=== PATIENT | female | born 1975 | race Caucasian/White ===

== ENCOUNTER 2016-09-18 17:31 | Emergency (ER) | payer BC ==
[2016-09-18 18:13] VITALS: RESP 17; TEMP 96.4
--- NOTE | 2016-09-18 20:18 | PDOC ---
Ear Complaints HPI - General Chief Complaint: General Medical Stated Complaint: "I BLEW MY NOSE, GOT DIZZY, AND FELL DOWN" Date Seen by Provider: 09/18/16 Time Seen by Provider: 17:50 Source: POSITIVE: Patient Exam Limitations: POSITIVE: No limitations Nurse's Notes Reviewed & Considered: Yes - History of Present Illness Initial Comments: The patient is a 40-year-old female. She states that for the past week or so she's had URI symptoms with prominent nasal congestion and pain over her maxillary and ethmoid sinuses. She's also had discomfort to her ears. Mild cough. She states that this afternoon she blew her nose forcefully and experienced pain in both ears and states she got dizzy. No known fevers or chills. No headache. Minimally productive cough. No chest pain. No GI or symptoms. She's had a hysterectomy. Location: Both Ears Timing: REPORTS: Abrupt (Ear discomfort for about a week; abruptly worse after she blew her nose forcefully) Severity: Moderate Quality: REPORTS: "Pain" Context: REPORTS: Injury (Possible barotrauma as above) Modifying Factors: REPORTS: None Associated Symptoms: REPORTS: Dull Earache, Hearing Loss (Subjectively for the past week), Barotrauma, Dizziness. DENIES: Fever, Chills, Ear Discharge, Ringing, Roaring, Trauma to Ear, Foreign Body, Jaw Pain, Sore Throat, Swollen Glands, Headache, Neck Pain, Motion Sickness Similar Symptoms Previously: No Recent Care Received: REPORTS: Denies Any Prior Injuries Related to Current Complaint?: No - Patient Home Medications Home Medications: Home Medications Citalopram Hydrobromide [Citalopram Hbr] 1 tab PO DAILY tab 02/29/16 Metoprolol Tartrate 1 tab PO DAILY tab 02/29/16 Topiramate [Topamax] 1 tab PO BID tab 02/29/16 Cefdinir Cap [Omnicef Cap] 300 mg PO Q12H #20 capsule 09/18/16 EPINEPHrine Auto-Injector [Epipen Inj] 0.3 mg IM PRN PRN 09/18/16 Omeprazole 20 mg PO DAILY 09/18/16 - Patient Allergies Allergies/Adverse Reactions: Allergies Allergy/AdvReac Type Severity Reaction Status Date / Time iodine Allergy Severe SHORTNESS Verified 09/18/16 17:44 OF BREATH Penicillins Allergy Severe Anaphylaxis Verified 09/18/16 17:44 Past Medical History - heen HEENT History: Denies History Cardiovascular History: Hypertension Respiratory History: Denies History Gastrointestinal History: GERD, Gallbladder Disease Additional Gastrointestinal History: Hx of Cholecystectomy Genitourinary History: Denies History Endocrine History: Denies History Musculoskeletal History: Rheumatoid Arthritis Prosthesis or Implant: No Neurological History: Migraines, Motion Sickness Blood Disorders: Denies History Psychiatric History: Anixety Disorders History of Sexually Transmitted Diseases: No Female Reproductive History: Hysterectomy Cancer History: Denies History In Past Year Been Physically Harmed or Verbally Threatened: No (PER PATIENT) History of MDRO: No History of Other Communicable Diseases: No Tobacco Use: Current Every Day Smoker Alcohol Use: None Substance Use Type: None Previous Surgical History: Yes Type / Date of Surgery: ADENOIDECTOMY/ CHOLECYSTECTOMY/ LEFT KNEE SCOPE/ SINUS SURGERY FOR POLYPS/ HYSTERECTOMY Anesthesia Reactions: No Malignant Hyperthermia: No Family History of Malignant Hyperthermia: No Significant Family History: No pertinent family hx Past Medical History Reviewed: Reviewed - No Changes ROS - Limitations ROS Limitations: No Limitations Constitution: REPORTS: Denies Symptoms Cardiovascular: REPORTS: Denies Cardiac Symptoms Respiratory: REPORTS: Cough Productive (Productive of mucoid sputum, mildly). DENIES: Hurts To Breathe, Shortness Of Breath, Wheezing Neurological: REPORTS: Denies Neuro Symptoms, Dizziness (After blowing her nose forcefully and developing some discomfort to both ears as above) Gastrointestinal: REPORTS: Denies GI Symptoms Endocrine: REPORTS: Denies Symptoms Musculoskeletal: REPORTS: Denies MS Symptoms Genitourinary: REPORTS: Denies Symptoms Eyes: REPORTS: Denies Symptoms ENT: REPORTS: Earache, Hearing Loss, Congestion (Prominent nasal congestion), Sinus Problem (Pain both maxillary and ethmoid sinus areas) Skin: REPORTS: Denies Skin Symptoms Lympathic: REPORTS: Denies Lympathic Symptoms Immunologic: POSITIVE: Denies Symptoms Psychiatric: POSITIVE: Denies Psych Symptoms Ear Complaint Exam - General Appearance General Appearance: POSITIVE: Alert, Cooperative, No Acute Distress, No Evidence of Trauma - HEENT Head / Face: POSITIVE: Atraumatic, Normal Inspection, No Facial Swelling Eyes: POSITIVE: Inspection Normal, PERRL, EOM's Intact, Eyelids Uninjured, Conjunctivae Uninjured, No Nystagmus, No Globe Trauma, Sclera Normal, Normal Corneal Inspection Ears: POSITIVE: Auricle Normal, External Canal Normal, TM Erythema (Bilaterally) , Fluid Behind TM (Bilaterally). NEGATIVE: Perforation of TM, CSF Leak, Mastoid Tenderness, Mastoid Swelling, Swelling of Canal, Material in Canal, Foreign Body Present, Discharge, Tenderness, Swelling, Ecchymosis Nose: POSITIVE: No Apparent Trauma, No CSF Leak, Tenderness (Tenderness on percussion over both maxillary and ethmoidal sinuses). NEGATIVE: Nares Normal ( Prominent congestion) Oropharynx: POSITIVE: External Inspection Nml, Pharynx Inspect. 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, Motor Normal, Sensation Normal, 5, 6 Ear Complaints Progress - Patient's Progress Pain Medication Addressed: POSITIVE: Yes (Recommended Advil or Tylenol) School/Work Release Addressed: POSITIVE: Not Applicable Re-Examine Time:: 18:20 Status: POSITIVE: Unchanged - Consult Counseled: POSITIVE: Patient, Family, RE: DX, RE: Need for F/U Patient Care Time - Estimated PCT Patient Care Time (In Minutes): 21 Vital Signs - Recent Vital Signs Vital Signs: Vital Signs (Last 8 hours) Temp Pulse Resp BP Pulse Ox 09/18/16 17:31 96.4 F L 63 17 134/81 96 - VS Reviewed Vital Signs Reviewed: Yes Discharge Clinical Impression: Sinusitis, Otitis media Discharge Disposition: Discharged to Home Condition: Stable Prescriptions / Orders: Cefdinir Cap [Omnicef Cap] 300 mg PO Q12H #20 capsule Patient Instructions Given at Discharge: Sinusitis (ED), Otitis Media (ED), Barotrauma (ED) Additional Instructions: Cefdinir, one tablet every 12 hours until gone. Zyrtec or Claritin, once daily. Follow-up with your primary care provider. Return here anytime if condition worsens in any way. Follow Up With: Dyan DUGGAN [Primary Care Provider] - (Instructions as above. Follow-up with your primary care provider. Return here anytime if condition worsens.)
== END 2016-09-18 18:14 | disposition home or self-care (01) ==
LOC: ER 17:31
DX: J01.00 Acute maxillary sinusitis, unspecified (principal); H66.93 Otitis media, unspecified, bilateral; R09.81 Nasal congestion; H92.03 Otalgia, bilateral; R42 Dizziness and giddiness
CPT/HCPCS: 99282